=== PATIENT | female | born 1965 | race Caucasian/White ===

== ENCOUNTER 2018-09-28 00:13 | Emergency (ER) | payer OTHER ==
[~2018-09-28] VITALS: Ht 165.1 cm; Wt 79.4 kg
[~2018-09-28 00:13] MED LIST: BENTYL10 MG; ULTRAM 50MG TAB50 MG PO
[2018-09-28 01:51] VITALS: BP 117/73
== END 2018-09-28 01:47 | disposition home or self-care (01) ==
LOC: M.ERS 00:13
DX: S61.411A Laceration without foreign body of right hand, initial encounter (principal); F17.210 Nicotine dependence, cigarettes, uncomplicated; Z90.710 Acquired absence of both cervix and uterus; Z88.8 Allergy status to other drugs, medicaments and biological substances; W26.0XXA Contact with knife, initial encounter; Y93.89 Activity, other specified; Y92.89 Other specified places as the place of occurrence of the external cause; Y99.8 Other external cause status

== ENCOUNTER 2019-06-07 13:32 | Emergency (ER) | payer OTHER ==
[~2019-06-07] VITALS: Ht 165.1 cm; Wt 77.1 kg
[2019-06-07] MEDS ORDERED: NEXIUM40 MG PO (13:43)
[2019-06-07] MEDS ORDERED: GABAPENTIN 100100 MG PO (13:43)
[2019-06-07 14:22] LABS: ABSOLUTE BASOPHILS 0.1 thou/uL (0.0-0.2); ABSOLUTE EOSINOPHILS 0.1 thou/uL (0.0-0.7); ABSOLUTE LYMPHOCYTES 1.8 thou/uL (0.8-5.3); ABSOLUTE MONOCYTES 0.5 thou/uL (0.0-1.2); ABSOLUTE NEUTROPHILS 5.8 thou/uL (1.6-8.1); BASOPHILS 0.7 %; HEMATOCRIT 36.1 % (37.0-47.0); HEMOGLOBIN 12.3 gm/dL (12.0-15.0); MCH 31.8 pg (26.0-34.0); MCHC 34.2 g/dL (28.0-37.0); MONOCYTES 6.5 %; MPV 6.9 fl. (7.2-11.1); NUCLEATED RBCS 0 /100WBC; PLATELET COUNT* 258 thou/uL (150-400); POLYS 69.8 %; RBC 3.88 mil/uL (4.20-5.00); RDW-CV 13.9 % (10.5-14.5); WBC 8.4 thou/uL (4.0-11.0)
[2019-06-07 14:44] LABS: ANION GAP 6 mmol/L (7-16); BUN 10 mg/dL (7-18); CALCIUM 8.3 mg/dL (8.5-10.1); CHLORIDE 106 mmol/L (98-107); CO2 28 mmol/L (21-32); CREATININE 0.7 mg/dL (0.6-1.3); GLUCOSE 99 mg/dL (70-99); POTASSIUM 3.9 mmol/L (3.5-5.1); SODIUM 140 mmol/L (136-145)
[2019-06-07 14:48] LABS: ALBUMIN 2.8 g/dL (3.4-5.0); ALKALINE PHOSPHATASE 75 U/L (46-116); LIPASE 149 U/L (73-393); SGOT 14 U/L (15-37); SGPT 20 U/L (30-65); TOTAL BILIRUBIN 0.1 mg/dL (<0.1-1.0); TOTAL PROTEIN 5.7 g/dL (6.4-8.2)
[2019-06-07 15:25] LABS: TROPONIN-I LEVEL <0.06 ng/mL (<0.06)
[2019-06-07 15:48] LABS: URINE BILIRUBIN NEGATIVE (Negative); URINE BLOOD NEGATIVE (Negative); URINE CLARITY CLEAR; URINE COLOR YELLOW; URINE GLUCOSE-RANDOM NEGATIVE (Negative); URINE KETONES NEGATIVE (Negative); URINE LEUKOCYTES-REFLEX NEGATIVE (Negative); URINE NITRITE-REFLEX NEGATIVE (Negative); URINE PROTEIN NEGATIVE (Negative); URINE SPECIFIC GRAVITY <= 1.005 (1.005-1.030); URINE UROBILINOGEN 0.2 E.U./dl (0.2-1.0)
[2019-06-07] MEDS ORDERED: PROAIR HFA8.5 GM INH (16:15)
[2019-06-07] MEDS ORDERED: NORCO 5-325 TA1 EAC1 PO (16:15)
[2019-06-07] MEDS ORDERED: PREDNISONE 20 M20 MG PO (16:15)
[2019-06-07 16:42] VITALS: BP 106/74
--- NOTE | 2019-06-08 11:54 | EKG ---
[place] [address] ELECTROCARDIOGRAM REPORT Name: JIMMY LARSEN [facility] [id number] Admission: 06/07/19 Attend Phys: Discharge: 06/07/19 Date of : 67 Report #: [id number] THIS REPORT FOR: //name// [facility] ED Test Date: 2019-06-07 Test Time: 14:25:33 Pat Name: JIMMY LARSEN Department: Room: Gender: F Sales Operations Coordinator: VALENCIA : 1965 Requested By: Edilberto Su Order Number: [id number] MD: Anthony Mercedes Measurements Intervals [place] Rate: 67 P: 60 [place]: 152 QRS: 28 QRSD: 91 T: 40 QT: 401 QTc: 424 Interpretive Statements Sinus rhythm No previous ECG available for comparison Electronically Signed On 06-08-2019 11:54:08 CDT by Anthony Mercedes [email or web address] <ELECTRONICALLY SIGNED> By: Anthony Mercedes MD, [facility] 06/08/19 1154 1425 1425 Anthony Mercedes MD, FACC /EPI
== END 2019-06-07 16:45 | disposition home or self-care (01) ==
LOC: M.ERS 13:32
PROVIDERS: Physician Assistant
DX: S20.212A Contusion of left front wall of thorax, initial encounter (principal); J98.4 Other disorders of lung; R10.33 Periumbilical pain; R10.11 Right upper quadrant pain; F17.210 Nicotine dependence, cigarettes, uncomplicated; Z98.84 Bariatric surgery status; Z90.710 Acquired absence of both cervix and uterus; Z90.49 Acquired absence of other specified parts of digestive tract; Z98.890 Other specified postprocedural states; Z91.048 Other nonmedicinal substance allergy status; W18.39XA Other fall on same level, initial encounter; Y92.89 Other specified places as the place of occurrence of the external cause; Y93.89 Activity, other specified; Y99.8 Other external cause status